=== PATIENT | female | born 1995 | race Two or more races ===

== ENCOUNTER 2017-07-18 00:03 | Emergency (ER) | payer OTHER ==
--- NOTE | 2017-07-18 01:21 | ER Document Report ---
ED General - General Chief Complaint: Abdominal Pain Stated Complaint: ABDOMINAL PAIN Time Seen by Provider: 07/18/17 00:47 Notes: Patient is a 21-year-old female without past medical history, no prior surgical history who presents with 8 months of intermittent right upper quadrant abdominal pain. States that she ate pizza tonight and approximately 1 hour later developed a severe onset of right upper quadrant abdominal pain that was stabbing and constant in nature. It was associated with multiple episodes of vomiting which is what prompted her come to the emergency department. States she has had similar symptoms in the past but never to this degree of severity. She has seen a primary care doctor regarding this concern he discontinued her supplemental iron pills stating that this is likely cause of her abdominal pain. States this did not resolve her pain. She has not had any associated diarrhea, fever, chest pain or shortness of breath. - Related Data Allergies/Adverse Reactions: No Known Allergies Allergy (Unverified 07/18/17 00:17) Past Medical History - General Information source: Patient - Social History Smoking Status: Never Smoker Frequency of alcohol use: None Drug Abuse: None Lives with: Spouse/Significant other Family History: Reviewed & Not Pertinent Renal/ Medical History: Denies: Hx Peritoneal Dialysis Review of Systems - Review of Systems Notes: Constitutional: Negative for fever. HENT: Negative for sore throat. Eyes: Negative for visual changes. Cardiovascular: Negative for chest pain. Respiratory: Negative for shortness of breath. Gastrointestinal: Positive for abdominal pain and vomiting Genitourinary: Negative for dysuria. Musculoskeletal: Negative for back pain. Skin: Negative for rash. Neurological: Negative for headaches, weakness or numbness. 10 point ROS negative except as marked above and in HPI. Physical Exam - Vital signs Vitals: Temp Pulse Resp BP Pulse Ox 98.6 F 84 16 124/99 H 99 07/18/17 00:17 07/18/17 00:17 07/18/17 00:17 07/18/17 00:17 07/18/17 00:17 Interpretation: Normal Notes: PHYSICAL EXAMINATION: GENERAL: Well-appearing, well-nourished and in no acute distress. HEAD: Atraumatic, normocephalic. EYES: Pupils equal round and reactive to light, extraocular movements intact, sclera anicteric, conjunctiva are normal. ENT: nares patent, oropharynx clear without exudates. Moist mucous membranes. NECK: Normal range of motion, supple without lymphadenopathy LUNGS: Breath sounds clear to auscultation bilaterally and equal. No wheezes rales or rhonchi. HEART: Regular rate and rhythm without murmurs ABDOMEN: Soft, mild right upper quadrant abdominal tenderness, no Kinsey sign, normoactive bowel sounds. No guarding, no rebound. No masses appreciated. EXTREMITIES: Normal range of motion, no pitting or edema. No cyanosis. NEUROLOGICAL: No focal neurological deficits. Moves all extremities spontaneously and on command. PSYCH: Normal mood, normal affect. SKIN: Warm, Dry, normal turgor, no rashes or lesions noted. Course - Re-evaluation Re-evalutation: 07/18/17 01:20 Patient presents clinical history and exam most consistent with symptomatic cholelithiasis. Patient has had progressive worsening of right upper quadrant pain worsened by eating but has been able to tolerate some oral intake. Vitals at time of arrival and on multiple reassessments remain non-concerning. Laboratories do show mild LFT elevations and a markedly elevated lipase but no elevation of bilirubin. A right upper quadrant ultrasound does not demonstrate evidence of acute cholecystitis but does show several gallstones. Patient is pain-free at this time and did have her episode triggered tonight by eating pizza. Repeat abdominal exams demonstrate no remaining abdominal tenderness whatsoever. Given her elevation of lipase making a diagnosis of acute pancreatitis I did offer and encourage admission to the patient. However given that she has no pain whatsoever she has declined admission stating that she would rather go home, manage her symptoms with a clear liquid diet and pain control. Suspect that at some point patient did have a pancreatic stone or a common bile duct stone that has since passed given the patient has now had complete resolution of her pain without any analgesia here in the ED. I have extensively reviewed with the patient as well as her at the bedside the need for her to return to the emergency department immediately should she develop worsening pain, fever greater than 101F, persistent vomiting, pass out , or have any other symptoms whatsoever that are worrisome to her. She and her have verbalized the risks and benefits of this approach including that she could clinically worsen at home and have a more complicated hospitalization course thereafter. She has capacity and has a clear line of reasoning that she would not like to be admitted secondary to not having any symptoms at this time. I have also instructed her that she needs to follow-up with a outpatient surgeon for definitive management. Patient has been able to tolerate oral intake here in the ED without difficulty. At this time will discharge with return precautions and follow-up recommendations. Verbal discharge instructions given a the bedside and opportunity for questions given. Medication warnings reviewed. Patient is in agreement with this plan and has verbalized understanding of return precautions and the need for primary care follow-up in the next 24-72 hours. - Vital Signs Vital signs: Temp Pulse Resp BP Pulse Ox 98.6 F 84 16 104/72 99 07/18/17 00:17 07/18/17 00:17 07/18/17 00:17 07/18/17 03:45 07/18/17 03:45 - Laboratory Result Diagrams: 07/18/17 02:40 Laboratory results interpreted by me: 07/18/17 02:40 Glucose 132 H Direct Bilirubin 0.5 H AST 93 H ALT 59 H Lipase 10642.4 H - Diagnostic Test Radiology reviewed: Reports reviewed Discharge - Discharge Clinical Impression: Acute pancreatitis Qualifiers: Pancreatitis type: biliary Acute pancreatitis complication: unspecified Qualified Code(s): K85.10 - Biliary acute pancreatitis without necrosis or infection Condition: Good Disposition: HOME, SELF-CARE Additional Instructions: You have gallstones that are causing your symptoms. Your pancreas is also inflamed likely secondary to these gallstones. As we have discussed, given that your pain is improved you have decided that you would like to go home rather than being admitted to the hospital. Be sure to avoid fat containing foods until you follow-up with a surgeon to have the gallbladder removed as eating these foods will trigger your pain. Please return to the emergency department if you develop a fever greater than 100.4F, persistent vomiting, worsening of your pain, or any other symptoms that are worrisome to you. Keep a clear liquid diet for the next several days. If you have any concerns, please contact me at my person cell phone: [phone]. Referrals: RONAL BENITEZ MD [ACTIVE STAFF] - Follow up as needed
--- NOTE | 2017-07-18 02:52 | RADIOLOGY REPORT (SQ) ---
EXAM DESCRIPTION: U/S ABDOMEN LIMITED W/O DOP COMPLETED DATE/TIME: 07/18/2017 2:33 am REASON FOR STUDY: ruq pain COMPARISON: None. TECHNIQUE: Grayscale images acquired of the right upper quadrant and recorded on PACS. Additional se lected color Doppler and spectral images recorded. LIMITATIONS: Acoustical interference from fat or from air in the bowel. FINDINGS: PANCREAS: Partially obscured by overlying bowel gas. The visualized pancreas in the regio n of the head and proximal body is unremarkable. LIVER: Measures 15.9 cm. Increased echogenicity, most consistent with fatty infiltration. LIVER VASCULATURE: Normal directional flow of the main portal vein. GALLBLADDER: Multiple gallstones. No pericholecystic fluid. No wall thickening. ULTRASOUND-DETECTED KINSEY'S SIGN: Positive. INTRAHEPATIC DUCTS AND COMMON DUCT: CBD and intrahepatic ducts normal caliber. INFERIOR VENA CAVA: Patent. AORTA: No aneurysm in the visualized segments. RIGHT KIDNEY: Measures 10.6 cm. Normal echogenicity. No hydronephrosis. No calcifications. PERITONEAL CAVITY AND RIGHT PLEURAL SPACE: No ascites or effusion. IMPRESSION: Cholelithiasis with a positive sonographic Kinsey's sign, in the appropriate clinical se tting, this may represent acute calculous cholecystitis. Please correlate with clinical exam/laborat ory values. Fatty infiltration of the liver. TECHNICAL DOCUMENTATION: JOB ID: [id number]- All Rights Reserved
[2017-07-18 03:08] LABS: ALANINE AMINOTRANSFERASE 59 U/L (9-52); ALBUMIN 4.4 g/dL (3.5-5.0); ALKALINE PHOSPHATASE 93 U/L (38-126); ANION GAP 11 (5-19); ASPARTATE AMINO TRANSFERASE 93 U/L (14-36); BILIRUBIN,DIRECT 0.5 mg/dL (0.0-0.4); BILIRUBIN,TOTAL 0.8 mg/dL (0.2-1.3); BLOOD UREA NITROGEN 19 mg/dL (7-20); CALCIUM 9.6 mg/dL (8.4-10.2); CARBON DIOXIDE 27 mmol/L (22-30); CHLORIDE 103 mmol/L (98-107); CREATININE RESULT 0.55 mg/dL (0.52-1.25); GLUCOSE 132 mg/dL (75-110); POTASSIUM 4.4 mmol/L (3.6-5.0); SODIUM 140.5 mmol/L (137-145); TOTAL PROTEIN 7.5 g/dL (6.3-8.2)
[2017-07-18 03:43] LABS: AMORPHOUS SEDIMENT,URINE TRACE /HPF; APPEARANCE,URINE CLOUDY; BILIRUBIN,URINE NEGATIVE (NEGATIVE); GLUCOSE, URINE NEGATIVE (NEGATIVE); KETONES,URINE NEGATIVE (NEGATIVE); LEUKOCYTE ESTERASE,URINE NEGATIVE (NEGATIVE); NITRITE,URINE NEGATIVE (NEGATIVE); PROTEIN,URINE NEGATIVE (NEGATIVE); URINE SPECIFIC GRAVITY 1.019; UROBILINOGEN,URINE NEGATIVE mg/dL (<2.0)
[2017-07-18 03:56] LABS: LIPASE 23310.4 U/L (23-300)
[2017-07-18] MEDS ORDERED: ONDANSETRON ODT 4 MG TAB (6 TAB/DSPK) PO PRN (04:19)
[2017-07-18] MEDS ORDERED: HYDROCODONE/ACETAMINOPHEN 5-325 MG 6 TAB/DSPK PO PRN (04:19)
[2017-07-18 04:42] VITALS: BP 112/73
== END 2017-07-18 04:42 | disposition home or self-care (01) ==
LOC: ER 00:03
DX: K85.10 Biliary acute pancreatitis without necrosis or infection (principal); R10.11 Right upper quadrant pain
CPT/HCPCS: 36415; 76705; 80053; 81001; 83690; 84703; 99284